=== PATIENT | male | born 1980 | race Caucasian/White ===

== ENCOUNTER 2021-10-26 19:40 | Emergency (ER) | payer SELFPAY ==
[~2021-10-26] VITALS: Ht 162.6 cm; Wt 59.0 kg
[2021-10-26 19:46] VITALS: BP 120/88
[2021-10-26] MEDS ORDERED: TETANUS, DIPHTHERIA, PERTUSSIS VAC/PF 0.5ML (>10YR OLD) IM ONE (20:45)
[2021-10-26] MEDS ORDERED: LIDOCAINE HCL 1% 20ML VIAL (Pyxis) INJ INFIL ONE (20:45)
== END 2021-10-26 22:15 | disposition home or self-care (01) ==
LOC: ER 19:40
DX: S61.210A Laceration without foreign body of right index finger without damage to nail, initial encounter (principal); W01.110A Fall on same level from slipping, tripping and stumbling with subsequent striking against sharp glass, initial encounter; Y93.E1 Activity, personal bathing and showering; Z72.89 Other problems related to lifestyle; Y92.012 Bathroom of single-family (private) house as the place of occurrence of the external cause
CPT/HCPCS: 12001; 73130; 90471; 90715; 99283; J3490